=== PATIENT | female | born 1935 | race Caucasian/White ===

== ENCOUNTER 2017-09-10 15:42 | Inpatient (IN) | payer MEDICARE ==
[~2017-09-10] VITALS: Ht 165.1 cm; Wt 74.4 kg
--- NOTE | ~2017-09-10 | O ---
[place], [place] OPERATIVE NOTE NAME: [id number] UNIT #: [id number] ROOM: 528 DOCTOR: JIGNESH GRISSOM DO BIRTHDATE: [birth year] DOS: 09/11/2017 PREOPERATIVE DIAGNOSIS: Right femoral neck fracture. POSTOPERATIVE DIAGNOSIS: Right femoral neck fracture. PROCEDURE: Right femoral neck endoprosthesis. SURGEON: Jignesh Grissom DO. BIT GRINDER: Rambo Villavicencio. ANESTHESIA: ANGELITO Archibald. INDICATIONS: The patient is a 81-year-old female who reports that she fell over her cat at home. She was brought to the Emergency Room. She was unable to ambulate and x-rays indicated a fracture of the right femoral neck with displacement. The risks and benefits of the procedure were explained to the patient preoperatively. Preoperative labs and x-rays were obtained. Preoperative medical clearance was obtained as well. DESCRIPTION OF PROCEDURE: The right lower extremity was marked in the holding room. The patient was brought to the operative suite and placed supine on the operative table. A general anesthetic endotracheal intubation was performed. The patient was placed in lateral decubitus position with the right lower extremity superior. A Luis or pegboard was used for positioning and all prominences were padded. The patient received Ancef preoperatively. The timeout was performed. The right lower extremity was prepped and draped in the usual orthopedic manner. The incision was marked with a marking pen as a posterior or southern incision. The area was injected with lidocaine 2% with epinephrine. The incision was made sharply with a scalpel. Subcutaneous tissue was spread down to the level of the gluteus fascia. The gluteus fascia was divided bluntly along its fibers as was the muscle. The extremity was internally rotated and the short external rotators were identified. The piriformis was tagged with a suture. The muscles were released from the level of their insertion. These were retracted posteriorly over the sciatic nerve. The capsule was identified and released in a T-shaped fashion. The fracture site was identified and a template was used to sebastian the calcar cut. The calcar cut was made with an oscillating saw. The femoral head was removed with a Steinmann pin and skid and taken to the back table to measure. The area was copiously irrigated with normal saline. Any remaining fragments of bone removed from the acetabulum. The femoral canal was then prepared using a box osteotome, followed by straight awl, followed by a lateralizing reamer. The broaches were utilized and progressed to a size 8. This was found to have excellent fit and fill and the trials were performed of the broach. It was found that a 49 mm head with a negative 3.5 neck provided the best range of motion and stability. The hip was taken to flexion past 90, internal and external rotation and extension. Shucking was performed and found to have no significant instability. [place], [place] OPERATIVE NOTE NAME: AMADOU LUGO UNIT #: [id number] ROOM: 528 DOCTOR: JIGNESH GRISSOM DO BIRTHDATE: [birth year] The trials were removed and the area was again copiously irrigated with normal saline. The Paulino size 12 stem was pressfit into place[address] The Paulino bipolar cup, liner and head were cold welded into place. The femoral head was reduced into the acetabulum. The extremity was again taken through range of motion with flexion, extension, internal and external rotation and found to have excellent stability and range. The wound was again copiously irrigated with normal saline and closed in a layered fashion with #1 Vicryl for the short external rotators, which were repaired to the greater trochanter. The gluteal layer was closed with #1 Vicryl in a [id number] fashion, followed by 2-0 Vicryl for the adipose layer. Skin kristyn were used to complete the closure. The wound was covered with Xeroform, 4 x 4s, ABDs and OpSite dressing. The patient was returned to a supine position. The abduction pillow was put into place. The anesthetic was reversed. The patient was extubated and taken to the recovery room in satisfactory condition. COUNTS: Sponge and needle count correct. ESTIMATED BLOOD LOSS: 100 mL. SPECIMENS: Femoral head and soft tissue. DRAINS AND PACKING: None. COMPLICATIONS: None. FINDINGS: Fracture of the right femoral neck with displacement. IMPLANTS: Paulino multipolar bipolar cup 49 mm, liner 28 mm, head VerSys -3.5 mm, stem size 12 VerSys standard fiber metal taper. JIGNESH GRISSOM DO CM:OPRECORD:OPERATIVE NOTE 41 23 JIGNESH GRISSOM DO 09/12/172024 interface
[2017-09-10 15:54] VITALS: BP 165/67
[2017-09-10 17:59] LABS: BASO % 0.2 % (0.0-1.0); EOS # 0.1 10*3/uL (0.0-0.4); EOS % 0.7 % (1.0-4.0); HEMATOCRIT 36.9 % (37.0-47.0); HEMOGLOBIN 12.7 g/dl (12.0-16.0); LYMPH % 9.3 % (27.0-41.0); MEAN CELL VOLUME 88.1 fl (81.0-99.0); MEAN CORPUSCULAR HGB 30.3 pg (27.0-31.0); MEAN CORPUSCULAR HGB CONC 34.4 g/dl (33.0-37.0); MEAN PLATELET VOLUME 9.5 fl (9.6-12.3); MONO # 0.5 10*3/uL (0.1-1.0); NEUT % 84.5 % (47.0-73.0); PLATELET COUNT AUTOMATED 227 10*3/uL (130-400); RED BLOOD COUNT 4.19 10*6/uL (4.10-5.10); WHITE BLOOD COUNT 10.7 10*3/uL (4.8-10.8)
[2017-09-10 18:13] LABS: ALBUMIN 3.6 gm/dl (3.1-4.5); ALKALINE PHOSPHATASE 85 U/L (45-117); BUN 21 mg/dl (7-24); CHLORIDE 107 mmol/L (98-107); CREATININE 0.86 mg/dL (0.55-1.02); POTASSIUM 4.1 mmol/L (3.5-5.1); SGOT/AST 25 IU/L (3-35); SGPT/ALT 27 U/L (12-78); SODIUM 141 mmol/L (136-145); TOTAL PROTEIN 7.6 gm/dL (6.4-8.2)
[2017-09-10 18:42] VITALS: BP 164/78
[2017-09-10 19:16] VITALS: BP 172/83
[2017-09-10 20:00] VITALS: BP 172/64
[2017-09-10 22:08] LABS: BILIRUBIN NEGATIVE (NEGATIVE); BLOOD TRACE-INTACT (NEGATIVE); CLARITY SL CLOUDY (CLEAR); COLOR YELLOW (YELLOW); GLUCOSE NEGATIVE (NEGATIVE); KETONE NEGATIVE (NEGATIVE); LEUKO ESTERASE NEGATIVE (NEGATIVE); NITRITE NEGATIVE (NEGATIVE); SPECIFIC GRAVITY 1.015 (1.005-1.030); UROBILINOGEN 0.2 E.U./dl (0.2-1.0)
[2017-09-10 22:16] LABS: BACTERIA 1+; EPITHELIAL CELLS 0-2
[2017-09-11] VITALS (10 sets, daily range): BP systolic 131–153; BP diastolic 52–76
[2017-09-11 06:48] LABS: BASO % 0.3 % (0.0-1.0); EOS # 0.4 10*3/uL (0.0-0.4); EOS % 5.6 % (1.0-4.0); HEMATOCRIT 32.5 % (37.0-47.0); LYMPH # 1.2 10*3/uL (1.3-4.4); MEAN CELL VOLUME 88.8 fl (81.0-99.0); MEAN CORPUSCULAR HGB 30.1 pg (27.0-31.0); MEAN CORPUSCULAR HGB CONC 33.8 g/dl (33.0-37.0); MEAN PLATELET VOLUME 10.2 fl (9.6-12.3); MONO # 0.4 10*3/uL (0.1-1.0); MONO % 5.6 % (3.0-9.0); NEUT # 5.3 10*3/uL (2.3-7.9); NEUT % 72.4 % (47.0-73.0); PLATELET COUNT AUTOMATED 179 10*3/uL (130-400); RED BLOOD COUNT 3.66 10*6/uL (4.10-5.10); RED CELL DISTRI WIDTH 13.1 % (0-14.5); WHITE BLOOD COUNT 7.3 10*3/uL (4.8-10.8)
[2017-09-11 07:31] LABS: CHLORIDE 105 mmol/L (98-107); SGOT/AST 22 IU/L (3-35); SODIUM 138 mmol/L (136-145)
[2017-09-11 07:41] LABS: ALKALINE PHOSPHATASE 70 U/L (45-117); BUN 18 mg/dl (7-24); CHOLESTEROL 152 mg/dL (<200); CREATININE 0.77 mg/dL (0.55-1.02); FREE T4 1.02 ng/dl (0.76-1.46); HDL CHOLESTEROL 92 mg/dl (40-60); LDL CHOLESTEROL 50 mg/dL (9-159); PHOSPHOROUS 2.6 mg/dL (2.5-4.9); SGPT/ALT 21 U/L (12-78); TOTAL PROTEIN 6.4 gm/dL (6.4-8.2); TRIGLYCERIDES 52 mg/dl (<150); VLDL CHOLESTEROL 10 mg/dL (6-40)
[2017-09-11 09:50] LABS: VITAMIN D, 25-HYDROXY 12.4 ng/mL (30-100)
[2017-09-12] VITALS: BP 156/70
[2017-09-12 06:44] LABS: BASO % 0.3 % (0.0-1.0); EOS # 0.6 10*3/uL (0.0-0.4); EOS % 7.7 % (1.0-4.0); HEMOGLOBIN 9.2 g/dl (12.0-16.0); LYMPH # 0.9 10*3/uL (1.3-4.4); LYMPH % 12.6 % (27.0-41.0); MEAN CELL VOLUME 87.7 fl (81.0-99.0); MEAN CORPUSCULAR HGB 29.9 pg (27.0-31.0); MEAN CORPUSCULAR HGB CONC 34.1 g/dl (33.0-37.0); MONO # 0.6 10*3/uL (0.1-1.0); MONO % 8.5 % (3.0-9.0); NEUT # 5.2 10*3/uL (2.3-7.9); NEUT % 70.6 % (47.0-73.0); PLATELET COUNT AUTOMATED 169 10*3/uL (130-400); RED BLOOD COUNT 3.08 10*6/uL (4.10-5.10); WHITE BLOOD COUNT 7.3 10*3/uL (4.8-10.8)
[2017-09-12 07:30] LABS: CHLORIDE 104 mmol/L (98-107); POTASSIUM 3.7 mmol/L (3.5-5.1); SODIUM 137 mmol/L (136-145)
[2017-09-12 07:34] LABS: BUN 19 mg/dl (7-24); CREATININE 0.97 mg/dL (0.55-1.02)
[2017-09-12 08:00] VITALS: BP 123/61
[2017-09-12 12:00] VITALS: BP 121/65
[2017-09-12 16:00] VITALS: BP 136/46
[2017-09-12 20:00] VITALS: BP 124/51
[2017-09-13] VITALS: BP 130/55; BP 170/61
[2017-09-13 07:35] LABS: BASO % 0.4 % (0.0-1.0); EOS # 0.9 10*3/uL (0.0-0.4); HEMATOCRIT 26.2 % (37.0-47.0); HEMOGLOBIN 8.8 g/dl (12.0-16.0); LYMPH # 1.3 10*3/uL (1.3-4.4); LYMPH % 17.4 % (27.0-41.0); MEAN CELL VOLUME 89.7 fl (81.0-99.0); MEAN CORPUSCULAR HGB 30.1 pg (27.0-31.0); MEAN CORPUSCULAR HGB CONC 33.6 g/dl (33.0-37.0); MEAN PLATELET VOLUME 10.2 fl (9.6-12.3); MONO # 0.7 10*3/uL (0.1-1.0); MONO % 8.8 % (3.0-9.0); NEUT # 4.6 10*3/uL (2.3-7.9); NEUT % 60.9 % (47.0-73.0); PLATELET COUNT AUTOMATED 174 10*3/uL (130-400); RED BLOOD COUNT 2.92 10*6/uL (4.10-5.10); WHITE BLOOD COUNT 7.6 10*3/uL (4.8-10.8)
[2017-09-13 07:57] LABS: ALBUMIN 2.3 gm/dl (3.1-4.5); ALKALINE PHOSPHATASE 70 U/L (45-117); CHLORIDE 107 mmol/L (98-107); CREATININE 0.87 mg/dL (0.55-1.02); POTASSIUM 3.5 mmol/L (3.5-5.1); SGOT/AST 28 IU/L (3-35); SGPT/ALT 15 U/L (12-78); SODIUM 141 mmol/L (136-145); TOTAL PROTEIN 5.6 gm/dL (6.4-8.2)
[2017-09-13 08:00] VITALS: BP 134/58
[2017-09-13 08:12] LABS: BUN 31 mg/dl (7-24)
[2017-09-13 12:00] VITALS: BP 139/57
[2017-09-13 16:00] VITALS: BP 136/62
[2017-09-13 20:00] VITALS: BP 158/78
[2017-09-14] VITALS: BP 148/58
[2017-09-14 06:51] LABS: BASO % 0.4 % (0.0-1.0); EOS % 13.4 % (1.0-4.0); HEMATOCRIT 27.6 % (37.0-47.0); LYMPH # 1.5 10*3/uL (1.3-4.4); LYMPH % 20.5 % (27.0-41.0); MEAN CELL VOLUME 91.7 fl (81.0-99.0); MEAN CORPUSCULAR HGB 29.9 pg (27.0-31.0); MEAN CORPUSCULAR HGB CONC 32.6 g/dl (33.0-37.0); MONO # 0.7 10*3/uL (0.1-1.0); MONO % 9.1 % (3.0-9.0); NEUT # 4.2 10*3/uL (2.3-7.9); NEUT % 56.2 % (47.0-73.0); PLATELET COUNT AUTOMATED 208 10*3/uL (130-400); RED BLOOD COUNT 3.01 10*6/uL (4.10-5.10); RED CELL DISTRI WIDTH 13.3 % (0-14.5); WHITE BLOOD COUNT 7.4 10*3/uL (4.8-10.8)
[2017-09-14 07:32] LABS: CHLORIDE 107 mmol/L (98-107); POTASSIUM 4.1 mmol/L (3.5-5.1); SODIUM 142 mmol/L (136-145)
[2017-09-14 07:42] LABS: ALBUMIN 2.3 gm/dl (3.1-4.5); ALKALINE PHOSPHATASE 99 U/L (45-117); BUN 32 mg/dl (7-24); CREATININE 0.81 mg/dL (0.55-1.02); SGOT/AST 30 IU/L (3-35); SGPT/ALT 21 U/L (12-78); TOTAL PROTEIN 5.8 gm/dL (6.4-8.2)
[2017-09-14 08:00] VITALS: BP 132/69
[2017-09-14 12:00] VITALS: BP 111/84
[2017-09-14 16:00] VITALS: BP 127/59
[2017-09-14 20:00] VITALS: BP 128/55
[2017-09-15] VITALS: BP 130/54
[2017-09-15 07:25] LABS: BASO % 0.5 % (0.0-1.0); EOS % 15.4 % (1.0-4.0); HEMATOCRIT 26.3 % (37.0-47.0); HEMOGLOBIN 8.5 g/dl (12.0-16.0); LYMPH # 1.3 10*3/uL (1.3-4.4); LYMPH % 20.6 % (27.0-41.0); MEAN CORPUSCULAR HGB 29.7 pg (27.0-31.0); MEAN CORPUSCULAR HGB CONC 32.3 g/dl (33.0-37.0); MEAN PLATELET VOLUME 9.9 fl (9.6-12.3); MONO # 0.5 10*3/uL (0.1-1.0); MONO % 8.4 % (3.0-9.0); NEUT # 3.4 10*3/uL (2.3-7.9); NEUT % 54.6 % (47.0-73.0); PLATELET COUNT AUTOMATED 224 10*3/uL (130-400); RED BLOOD COUNT 2.86 10*6/uL (4.10-5.10); RED CELL DISTRI WIDTH 13.2 % (0-14.5); WHITE BLOOD COUNT 6.3 10*3/uL (4.8-10.8)
[2017-09-15 07:28] LABS: BUN 31 mg/dl (7-24); CHLORIDE 107 mmol/L (98-107); CREATININE 0.78 mg/dL (0.55-1.02); POTASSIUM 4.2 mmol/L (3.5-5.1); SODIUM 140 mmol/L (136-145)
[2017-09-15 08:00] VITALS: BP 148/64
[2017-09-15 12:00] VITALS: BP 155/98
[2017-09-15 16:00] VITALS: BP 147/48
[2017-09-15 20:00] VITALS: BP 145/45
[2017-09-16] VITALS: BP 143/61
[2017-09-16 08:00] VITALS: BP 145/53
[2017-09-16 12:00] VITALS: BP 118/40
[2017-09-16] MEDS ORDERED: ENOXAPARIN40 MG/0.2 SC (13:07)
[2017-09-16] MEDS ORDERED: NORCO 5/325 PO (13:07)
[2017-09-16] MEDS ORDERED: TYLENOL325 M2 PO (13:07)
== END 2017-09-16 16:39 | disposition other institution (70) | DRG 470 ==
LOC: ED 15:42 → EDHOLD 17:32 → 5E 17:32
PROVIDERS: Emergency Medicine; Family Medicine; Orthopaedic Surgery; Physician Assistant; Student in an Organized Health Care Education/Training Program; ADMIT Internal Medicine
PROC: 0SRR01A Replacement of Right Hip Joint, Femoral Surface with Metal Synthetic Substitute, Uncemented, Open Approach (ICD-10-PCS; principal; 2017-09-11)
DX: S72.011A Unspecified intracapsular fracture of right femur, initial encounter for closed fracture (principal); E55.9 Vitamin D deficiency, unspecified; K21.9 Gastro-esophageal reflux disease without esophagitis; R03.0 Elevated blood-pressure reading, without diagnosis of hypertension; R73.9 Hyperglycemia, unspecified; W01.0XXA Fall on same level from slipping, tripping and stumbling without subsequent striking against object, initial encounter; Y93.89 Activity, other specified; Y92.89 Other specified places as the place of occurrence of the external cause; Y99.8 Other external cause status; Z82.49 Family history of ischemic heart disease and other diseases of the circulatory system

== ENCOUNTER 2017-09-27 08:11 | Emergency (ER) | payer MEDICARE ==
[~2017-09-27 08:11] MED LIST: ENOXAPARIN40 MG/0.2 SC; NORCO 5/325 PO; TYLENOL325 M2 PO
[2017-09-27] MEDS ORDERED: MILK OF MA400 MG/51 PO (08:38)
[2017-09-27] MEDS ORDERED: RESTORIL15 MG PO (08:39)
[2017-09-27] MEDS ORDERED: VITAMIN D-32000 UNIT PO (08:40)
[2017-09-27] MEDS ORDERED: ZOFRAN4 MG PO (08:41)
[2017-09-27 08:58] LABS: BASO % 0.2 % (0.0-1.0); EOS % 0.2 % (1.0-4.0); HEMATOCRIT 30.2 % (37.0-47.0); HEMOGLOBIN 9.7 g/dl (12.0-16.0); LYMPH # 0.8 10*3/uL (1.3-4.4); LYMPH % 8.7 % (27.0-41.0); MEAN CORPUSCULAR HGB 29.2 pg (27.0-31.0); MEAN CORPUSCULAR HGB CONC 32.1 g/dl (33.0-37.0); MEAN PLATELET VOLUME 9.3 fl (9.6-12.3); MONO # 0.7 10*3/uL (0.1-1.0); MONO % 8.4 % (3.0-9.0); NEUT # 7.1 10*3/uL (2.3-7.9); PLATELET COUNT AUTOMATED 356 10*3/uL (130-400); RED BLOOD COUNT 3.32 10*6/uL (4.10-5.10); RED CELL DISTRI WIDTH 13.7 % (0-14.5); WHITE BLOOD COUNT 8.7 10*3/uL (4.8-10.8)
[2017-09-27 09:13] LABS: ALBUMIN 2.5 gm/dl (3.1-4.5); ALKALINE PHOSPHATASE 123 U/L (45-117); BUN 21 mg/dl (7-24); CHLORIDE 102 mmol/L (98-107); CREATININE 0.85 mg/dL (0.55-1.02); POTASSIUM 3.6 mmol/L (3.5-5.1); SGOT/AST 11 IU/L (3-35); SGPT/ALT 20 U/L (12-78); SODIUM 137 mmol/L (136-145); TOTAL PROTEIN 6.9 gm/dL (6.4-8.2)
== END 2017-09-27 12:02 | disposition short-term general hospital (02) ==
LOC: ED 08:11
PROVIDERS: Emergency Medicine
DX: M00.9 Pyogenic arthritis, unspecified (principal); T81.4XXA Infection following a procedure, initial encounter; K21.9 Gastro-esophageal reflux disease without esophagitis; R73.9 Hyperglycemia, unspecified; Z79.899 Other long term (current) drug therapy

== ENCOUNTER → 2017-10-15 | Outpatient (CLI) | payer MEDICARE ==
[~2017-10-15] MED LIST changes: +MILK OF MA400 MG/51 PO; +RESTORIL15 MG PO; +VITAMIN D-32000 UNIT PO; +ZOFRAN4 MG PO
[2017-10-15 20:01] LABS: HEMATOCRIT 24.3 % (37.0-47.0); HEMOGLOBIN 7.8 g/dl (12.0-16.0)
== END | disposition home or self-care (01) ==
LOC: TRNFUSION 16:38
DX: D64.9 Anemia, unspecified (principal); I48.91 Unspecified atrial fibrillation; K21.9 Gastro-esophageal reflux disease without esophagitis; M81.0 Age-related osteoporosis without current pathological fracture

== ENCOUNTER → 2017-11-11 | Outpatient (CLI) | payer MEDICARE | END | disposition home or self-care (01) | LOC: ORTHO 02:29 | DX: S72.001D Fracture of unspecified part of neck of right femur, subsequent encounter for closed fracture with routine healing (principal); X58.XXXD Exposure to other specified factors, subsequent encounter ==

== ENCOUNTER → 2023-02-01 | Outpatient (CLI) | payer OTHER, MEDICAID | LOC: WOUNDCARE 00:50 | PROVIDERS: ATTEND Nurse Practitioner Family | DX: Z53.21 Procedure and treatment not carried out due to patient leaving prior to being seen by health care provider (principal) ==